=== PATIENT | male | born 1990 | race Caucasian/White ===

== ENCOUNTER 2024-04-29 13:41 | Emergency (ER) | payer OTHER, SELFPAY ==
[2024-04-29 13:43] VITALS: BP 136/75; PULSE 105; RESP 18; TEMP 37.1; O2SAT 95; BMI 38.0
--- NOTE | 2024-04-29 14:46 | RAD_ITS ---
PROCEDURE: CHEST 1 VIEW (PORTABLE) REASON FOR EXAM: COUGH, INFLUENZA TECHNIQUE: Single frontal image including the chest and abdomen. COMPARISON: NONE. RAD/Chest 1 View (Portable) IMPRESSION: RIGHT HEMIDIAPHRAGM EVENTRATION IS NOTED. LUNGS ARE SOMEWHAT HYPOINFLATED, BUT APPEAR CLEAR OF ACUTE DISEASE. NO PLEURAL EFFUSION OR PNEUMOTHORAX IS NOTED. THE CARDIOMEDIASTINAL SILHOUETTE IS WITHIN THE NORMAL RANGE. NO ACUTE OSSEOUS PROCESS IS SEEN. Reading Location: [id number]
--- NOTE | 2024-04-29 14:56 | EX.ED.DYSGE1 ---
HPI History of Present Illness Chief Complaint: General Illness Informant: patient and family Narrative Narrative: 33-year-old male presenting to the emergency room with concerns for dehydration continued cough and fever. Patient states that multiple members of his family have had similar. He became ill last . He felt better over the weekend and went to [place] for work yesterday. Last evening and throughout the night he had fevers and sweating. He notes a continued cough with sputum production. He denies any vomiting or diarrhea. He has been using Tylenol for fever. He notes he is an otherwise healthy individual. PFSH PFS Medical History no medical history Home Medications ?Medication ?Instructions ?Recorded ?Last Taken ?Type azithromycin 250 mg tablet See Rx Instructions PO .COMPLEX #6 04/29/24 Unknown Rx (Zithromax Z-Nate) tabs Allergy/AdvReac Type Severity Reaction Status Date / Time No Known Allergies Allergy Verified 04/29/24 13:43 Family History no significant family his Surgical History no surgical history Social History Smoking Status: Former smoker ROS ROS ED Constitutional Constitutional ED: Reports chills, fever(s) and sweats; Denies weight loss Eyes Eyes: Denies change in vision or diplopia ENT ENT ED: Reports rhinorrhea; Denies ear pain or sore throat Cardiovascular Cardiovascular: Denies chest pain, orthopnea, palpitations or racing heartbeat Respiratory/Chest Respiratory/Chest: Reports cough; Denies dyspnea or orthopnea Gastrointestinal Gastrointestinal: Denies abdominal pain, diarrhea, nausea or vomiting Genitourinary Genitourinary ED: Reports other Details: Decreased and dark urine ; Denies dysuria, hematuria or urinary frequency Musculoskeletal Musculoskeletal: Reports myalgias; Denies arthralgias or neck pain Integumentary Denies abscess or rash Neurologic Neurologic: Reports headache(s); Denies weakness Psychiatric Psychiatric: Denies anxiety, depression, suicidal ideation or suicidal thoughts Endocrine Endocrinology: Denies polydipsia, polyphagia or polyuria Allergic/Immunologic Allergic/Immunologic ED: Denies mouth swelling, tongue swelling or urticaria EXAM Physical Exam Const Vital Signs: 04/29/24 13:43 04/29/24 14:20 04/29/24 15:42 Temperature 98.8 F Temperature Source Oral Pulse Rate 105 H 89 Respiratory Rate 18 Respiratory Effort Normal Non-Labored Respiratory Pattern Normal Blood Pressure 136/75 H 138/89 H Blood Pressure Mean 95 105 Pulse Ox 95 Oxygen Delivery Method Room Air Positive well nourished and well developed General Appearance ED: well developed and NAD HEENT Reports normocephalic, head/scalp atraumatic and moist mucous membranes Eyes PERRL and EOMs intact bilaterally Neck no lymphadenopathy, supple and no JVD Neck Narrative: No meningeal signs Resp normal respiratory effort and clear to auscultation bilaterally Auscultation: rhonchi left lower Cardio regular rate, regular rhythm and no murmurs Rate: tachycardic GI normal to inspection, nondistended, normoactive bowel sounds and non-tender Palpation: soft Back/Spine no CVA tenderness and normal ROM Extremity normal to inspection General Extremety ED: Negative for edema General Extremity: Negative for edema Neuro oriented x3 and CN's II-XII intact bilaterally Sensorium / Orientation: alert Motor Exam: strength 5/5 throughout Psych mental status grossly normal Mood & Affect: Negative for depressed or tearful Skin no rashes or lesions noted and no wounds MDM MDM MDM Narrative Medical decision making narrative: Differential diagnosis includes but not limited to dehydration pneumonia viral syndrome electrolyte abnormality bronchitis bronchospasm pleural effusion acute kidney injury My independent interpretation of the single view chest x-ray is possible left lower lobe. Please see radiology overread. Patient received IV fluids. BMP was obtained which demonstrated a sodium of 133 potassium 3.4 creatinine 0.34 glucose 74 BUN of 15 patient received 2 L of IV fluids as well as a dose of Toradol. I will write for him to have some azithromycin because of the potential findings on both lung auscultation and on the chest x-ray for pneumonia. Would encourage oral hydration as well as aggressive fever control. Patient comfortable with this plan heart rate is down to 89. History & Record Review Discussion w/independent historian: Patient and Family Lab Data Attestation: I reviewed the patient's lab results. Labs: Laboratory Results - last 24 hr 04/29/24 15:10 Sodium 133 L Potassium 3.4 L Chloride 100 Carbon Dioxide 25.0 Anion Gap 9 BUN 15 Creatinine 1.34 H Estim Creat Clear Calc 100.07 Est GFR (MDRD) Af Amer 78 Est GFR (MDRD) Non-Af 64 BUN/Creatinine Ratio 11.2 Glucose 94 Calcium 8.8 Radiography Diagnostic Testing: Clinical Impression(s) from Imaging Studies Chest X-Ray 04/29/24 14:46 IMPRESSION: RIGHT HEMIDIAPHRAGM EVENTRATION IS NOTED. LUNGS ARE SOMEWHAT HYPOINFLATED, BUT APPEAR CLEAR OF ACUTE DISEASE. NO PLEURAL EFFUSION OR PNEUMOTHORAX IS NOTED. THE CARDIOMEDIASTINAL SILHOUETTE IS WITHIN THE NORMAL RANGE. NO ACUTE OSSEOUS PROCESS IS SEEN. Reading Location: [address] Discharge Plan Triage Chief Complaint: General Illness ED Provider: Rubin Cruz Dx/Rx/DC Orders Clinical Impression: Influenza A Instructions: Dehydration, ED Influenza (Adult) Prescriptions: New azithromycin [Zithromax Z-Nate] 250 mg tablet See Rx Instructions .ROUTE .COMPLEX Qty: 6 0RF Rx Instructions: For 250 mg dose pack: take 500 mg today (day 1), then 250 mg for 4 days (days 2-5) Primary Care Provider: Ana Abarca Referrals: Ana Abarca, [facility] [Primary Care Provider] - As Needed Print Language: [place] Disposition Disposition: Home, Self Care
[2024-04-29] MEDS: 0.9% Normal Saline (1000mL) 1,000 ML 1000 ML IV ×2 (14:59→15:05)
[2024-04-29] MEDS: Ketorolac 30 MG/ML Syringe IV (14:59)
[2024-04-29 15:42] VITALS: BP 138/89; PULSE 89
[2024-04-29 16:09] LABS: Anion Gap 9 (5-15); BUN 15 mg/dL (7-18); BUN/Creat Ratio 11.2 RATIO (10-20); Calcium,Total 8.8 mg/dL (8.5-10.1); Chloride 100 mmol/L (98-107); Creatinine, Serum 1.34 mg/dL (0.70-1.30); EST Glomerular Filtration Rate 64 mL/min (>60); Est Glom Filt Rate - Afr Amer 78 mL/min (>60); Estimated Creatinine Clearance 100.07 ml/min; Glucose 94 mg/dL (74-106); Potassium 3.4 mmol/L (3.5-5.1); Sodium Level 133 mmol/L (136-145)
[2024-04-29 16:57] VITALS: BP 138/89; PULSE 89; RESP 16; TEMP 36.4; O2SAT 98
== END 2024-04-29 16:58 | disposition home or self-care (01) ==
PROVIDERS: Emergency Provider Emergency Medicine; PCP Nurse Practitioner Family; Visit Provider Emergency Medicine
DX: J10.1 Influenza due to other identified influenza virus with other respiratory manifestations (principal); Z87.891 Personal history of nicotine dependence
CPT/HCPCS: 71045; 80048; 87631; 96374; 99283; A4216